=== PATIENT | female | born 1955 | race Caucasian/White ===

== ENCOUNTER 2016-08-25 01:08 | Emergency (ER) | payer BC ==
[~2016-08-25] VITALS: Ht 160 cm; Wt 67.6 kg
[~2016-08-25 01:08] MED LIST: ALPR1TAB6 PO; OXYC5TAB PO
[2016-08-25 01:29] VITALS: BP 175/79
[2016-08-25] MEDS ORDERED: METR500T PO (01:54)
[2016-08-25] MEDS ORDERED: DOXY100C2 PO (01:54)
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
[2016-08-25] MEDS ORDERED: RABIES IMMUNE GLOBULIN PF 150 UNIT/ML 10ML VIAL. VAX IM ONE (02:00)
[2016-08-25] MEDS ORDERED: DIPHTH,PERTUSS(ACELL),TET TOX 0.5 ML DISP.SYRIN. VAX IM ONE (02:00)
[2016-08-25] MEDS ORDERED: RABIES VIRUS VACC PF 2.5 UNIT / 1 ML VIAL. VAX IM ONE (02:00)
== END 2016-08-25 02:38 | disposition home or self-care (01) ==
LOC: ER 01:08
DX: S81.851A Open bite, right lower leg, initial encounter (principal); Z88.5 Allergy status to narcotic agent; Z88.0 Allergy status to penicillin; W54.0XXA Bitten by dog, initial encounter; Y93.89 Activity, other specified; Y99.8 Other external cause status; Y92.89 Other specified places as the place of occurrence of the external cause
CPT/HCPCS: 90375; 90471; 90472; 90675; 90715; 96372; 99284-25

== ENCOUNTER → 2017-06-29 | Outpatient (CLI) | payer BC | END | disposition home or self-care (01) | LOC: MRI 09:31 | DX: M48.07 Spinal stenosis, lumbosacral region (principal); M51.36 Other intervertebral disc degeneration, lumbar region; M48.02 Spinal stenosis, cervical region; G89.29 Other chronic pain | CPT/HCPCS: 72141; 72146; 72148 ==